=== PATIENT | female | born 1980 | race Hispanic/Latino ===

== ENCOUNTER → 2019-05-16 | Outpatient (CLI) | payer BC | END | disposition home or self-care (01) | LOC: RAH 09:09 | PROVIDERS: ATTEND Specialist | DX: N63.14 Unspecified lump in the right breast, lower inner quadrant (principal); N60.02 Solitary cyst of left breast | CPT/HCPCS: 76641; 77066 ==

== ENCOUNTER → 2019-07-08 | Outpatient (CLI) | payer BC ==
[2019-07-08 08:36] LABS: INR 0.88 (0.85-1.15); PARTIAL THROMBOPLASTIN TIME 27.6 SEC (26.3-35.5); PROTHROMBIN TIME 9.5 SEC (9.6-11.6)
--- NOTE | 2019-07-08 09:05 | NUR ---
U/S GUIDED BIOPSY RIGHT BREAST NODULE PROCEDURE PERFORMED BY DR. IRIZARRY. PUNCTURE SITE RIGHT BREAST. PATIENT TOLERATED PROCEDURE WELL. SPECIMEN X 4 COLLECTED. TISSUE MARKER PLACED TO SITE. SPECIMEN SENT TO LAB. END OF PROCEDURE AT 0920. BIOPSY NEEDLE REMOVED AND DRESSING APPLIED. NO BLEEDING NOTED. PATIENT GIVEN DISCHARGE INSTRUCTIONS, PATIENT VERBALIZED UNDERSTANDING. PT DISCHARGED, AMBULATORY @ 0940, STABLE, AAO X3 WITH NO C/O PAIN.
== END | disposition home or self-care (01) ==
LOC: RAH 07:39
PROVIDERS: ATTEND Specialist
DX: N63.14 Unspecified lump in the right breast, lower inner quadrant (principal); Z79.01 Long term (current) use of anticoagulants
CPT/HCPCS: 19083; 36415; 85610; 85730; A4215 ×2

== ENCOUNTER → 2023-02-10 | Outpatient (CLI) | payer BC | END | disposition home or self-care (01) | LOC: RAH 11:55 | PROVIDERS: ATTEND Nurse Practitioner Family | DX: M17.12 Unilateral primary osteoarthritis, left knee (principal); M25.562 Pain in left knee; M79.89 Other specified soft tissue disorders | CPT/HCPCS: 73562 ==